=== PATIENT | female | born 1940 | race Caucasian/White ===

== ENCOUNTER → 2017-06-20 | Outpatient (CLI) | payer OTHER | LOC: BHFA 10:30 | PROVIDERS: ATTEND Internal Medicine Cardiovascular Disease | DX: I48.91 Unspecified atrial fibrillation (principal) ==

== ENCOUNTER → 2017-08-30 | Outpatient (CLI) | payer OTHER | LOC: CIMAGING 10:30 | PROVIDERS: ATTEND Family Medicine | DX: M19.031 Primary osteoarthritis, right wrist (principal); M25.731 Osteophyte, right wrist | CPT/HCPCS: 73110-PO ==

== ENCOUNTER 2018-08-30 10:45 | Emergency (ER) | payer OTHER ==
--- NOTE | 2018-08-30 11:14 | EDPHY ---
H & P Stated Complaint: L ankle/foot pain after mechanical fall yesterday Time Seen by Provider: 08/30/18 11:13 HPI/ROS: CHIEF COMPLAINT: Left knee as well as ankle/foot pain HISTORY OF PRESENT ILLNESS: This is a 78-year-old female who took a tumble from an trip and fall of a mechanical nature while in the garden yesterday. She is emphatic that she was not over exposed to the heat nor did she have any presyncopal type symptomatology. She was awake and alert during the entire event and has full recall. Furthermore, she did not get hit in the thoracoabdominal region or the head. Once on the ground as her left leg collapsed she felt that her knee was underneath her so she had pulled leg around. At that time she felt a pop but she attributes that to be at the ankle. Since that time she has had difficulty weight-bearing but she has been able to. She does use a cane in the 1st place due to right leg weakness secondary to significant repetitive peripheral vascular disease with vascular interventions. She continue to use the cane on her right side albeit it is typically her right leg that is problematic. She did note in particular that this morning when she got up the knee was unable to be straightened for quite some time as she need to work it out before she could do so. However, all-in-all is really her foot and ankle that would bother her. P symptoms are worse with prolonged rest as through last night as well as weight -bearing Q achiness R localized to the foot and ankle, really not to the knee. S moderate, did not have to take her oxycodone which she takes for her right knee pain, typically at night T onset since the fall. Pt queried and denies: prior hx of substance abuse, family history of substance abuse' or current or prior psychiatric history. Right-handed Avocations: Gardening Sports: None Work: none REVIEW OF SYSTEMS: Constitutional - no fevers or chills Musculoskeletal - see above Integument - no rashes or wounds Chest: It did not hurt her to breathe or take a deep breath or twists to bend Abdomen: She denies injury to the thoracoabdominal region nor has she had any abdominal pain or passing blood in urine her rectum Neurological - no numbness, tingling, or paresthesias. A 10 system review of systems was performed and is negative except for the noted findings in the HPI. Source: Patient Exam Limitations: No limitations - Personal History Current Tetanus/Diphtheria Vaccine: Unsure Current Tetanus Diphtheria and Acellular Pertussis (TDAP): Unsure - Medical/Surgical History Hx Asthma: No Hx Chronic Respiratory Disease: No Hx Diabetes: Yes Hx Cardiac Disease: Yes Hx Renal Disease: No Hx Cirrhosis: No Hx Alcoholism: Yes Hx HIV/AIDS: No Hx Splenectomy or Spleen Trauma: No Other PMH: AFIB, PAD - 5x arterial bypass R LE, hypothyroidism, depression, DM type 2 - Social History Smoking Status: Current every day smoker Alcohol Use: None Drug Use: None - Physical Exam Exam: General Appearance: Alert, no distress. Afebrile. Extremities: Left knee: There is a small amount of effusion. While it does bother her for me to perform a Perez's I cannot perceive any laxity. There is no collateral ligament laxity. She is able to bend to just past 90. Negative drawer sign. Left ankle: There is some mild soft tissue swelling present just anterior to the lateral malleolus, which is mildly tender. The medial malleolus is nontender. Negative drawer sign. No deformity Left foot: Mild tenderness over the dorsum without any specific localizing findings. No ecchymosis. No deformity noted. Neurological: NV intact. Skin: Skin is intact. Warm and dry, no rashes. no lymphangitis. . Constitutional: Initial Vital Signs Temperature (C) 36.6 C 08/30/18 10:52 Heart Rate 85 08/30/18 10:52 Respiratory Rate 16 08/30/18 10:52 Blood Pressure 120/68 08/30/18 10:52 O2 Sat (%) 92 08/30/18 10:52 O2 Delivery Mode Room Air Allergies/Adverse Reactions: fentanyl Allergy (Verified 08/30/18 11:00) Pt reports altered mental status, heart stopped metformin Allergy (Verified 08/30/18 11:00) Pt unsure of reaction zolpidem tartrate [From Ambien] Allergy (Verified 08/30/18 11:00) Pt reports HALLUCINATIONS, PARANOIA Home Medications: Medication Instructions Recorded Bupropion HCl 08/30/18 Carvedilol 08/30/18 Furosemide 08/30/18 Glipizide 08/30/18 Levothyroxine 08/30/18 Lyrica 08/30/18 Oxycodone HCl 08/30/18 Pantoprazole Sodium 08/30/18 Potassium Chloride 08/30/18 Simvastatin 08/30/18 Warfarin Sodium 08/30/18 Medical Decision Making - Diagnostics Imaging Results: Imaging Impressions Ankle X-Ray 08/30/18 11:05 Impression: Ankle sprain. No acute fracture. Foot X-Ray 08/30/18 11:05 Impression: 1. No acute fracture. 2. Subacute healing fourth metatarsal fracture versus stress fracture. Knee X-Ray 08/30/18 11:14 Impression: Negative. No acute fracture. Trace effusion. Following films reviewed on the [facility] with interpretation by the radiologist: Left knee Left ankle Left foot ED Course/Re-evaluation: Patient declined any pain medication on arrival. It did not bring the Adelfo bandage with them so I cannot tell if it was actually worth reusing. Thus will go ahead and give her a set of Adelfo bandages for the ankle and knee. The findings were reviewed on the [facility] via the x-rays and final report per the radiologist. I am fine with her taking her oxycodone for her regular pain but have cautioned her to use a walker due to the additional instability she will have between having a right leg and problematic left leg. Furthermore I recommended she follow up with her PCP/Orthopedics regarding the case because of her effusion in the knee. Differential Diagnosis: The differential diagnosis includes but is not limited to: Fracture, Sprain, Strain, Dislocation, Nerve injury, Contusion Departure - Departure Disposition: Home, Routine, Self-Care Clinical Impression: Knee sprain Qualifiers: Encounter type: initial encounter Involved ligament of knee: unspecified ligament Laterality: left Qualified Code(s): S83.92XA - Sprain of unspecified site of left knee, initial encounter Sprain of foot Qualifiers: Encounter type: initial encounter Laterality: left Qualified Code(s): S93.602A - Unspecified sprain of left foot, initial encounter Sprain of ankle Qualifiers: Encounter type: initial encounter Involved ligament of ankle: unspecified ligament Laterality: left Qualified Code(s): S93.402A - Sprain of unspecified ligament of left ankle, initial encounter Condition: Good Instructions: Ankle Sprain (ED), Knee Sprain (DC) Additional Instructions: Use ice. Use the oxycodone like you have in the past but no more. Wear the Adelfo bandage to support the knee as well as the ankle Follow-up with her family doctor orthopedist in 3-7 days Use a walker so that she more secure when your up Referrals: Zonia Fishman MD [Primary Care Provider] - As per Instructions
[2018-08-30 13:22] VITALS: BP 128/71
== END 2018-08-30 13:13 | disposition home or self-care (01) ==
LOC: CED 10:45
DX: S83.92XA Sprain of unspecified site of left knee, initial encounter (principal); S93.402A Sprain of unspecified ligament of left ankle, initial encounter; S93.602A Unspecified sprain of left foot, initial encounter; W01.0XXA Fall on same level from slipping, tripping and stumbling without subsequent striking against object, initial encounter
CPT/HCPCS: 73562-PO; 73610-PO; 73630-PO; 99283-ER